=== PATIENT | male | born 1985 | race Caucasian/White ===

== ENCOUNTER 2016-06-11 10:53 | Emergency (ER) | payer BC, OTHER ==
[~2016-06-11] VITALS: Ht 180.3 cm; Wt 58.0 kg
[~2016-06-11 10:53] MED LIST: FEXO60TA PO; PERM5%T TOP; PERM5CRE TOP
[2016-06-11 10:58] VITALS: BP 118/79; PULSE 86; RESP 16; TEMP 98.8; O2SAT 100
[2016-06-11] MEDS ORDERED: ASPIRIN 81 MG CHEW TAB PO ONE (11:30)
[2016-06-11] MEDS ORDERED: SODIUM CHLORIDE 0.9% FLUSH 5 ML FLUSH IVF PRN (11:30)
[2016-06-11 11:31] VITALS: O2SAT 98
--- NOTE | 2016-06-11 11:42 | PD ---
HPI Chief Complaint: Musculoskeletal Complaint Time Seen by Provider: 11:39 Travel History International Travel<30 days: No Contact w/Intl Traveler<30days: No Traveled to known affect area: No History of Present Illness HPI 30-year-old male presents to the emergency room for evaluation of palpitations that have been ongoing for the past 5-7 days. Patient states palpitations have been getting progressively longer and occurring more often throughout the day. Patient does not associate the onset of symptoms with any activity. States it occurs randomly and lasts anywhere from one to 5 minutes. Reports that his chest feels "weird" during episodes but he denies chest pain, shortness breath, diaphoresis, nausea, vomiting, lightheadedness, and radiation of symptoms. Report increased caffeine intake recently. Denies cocaine or illicit drug use. Denies personal or family history of heart disease. PFSH Past Medical History Hx Anticoagulant Therapy: No Cancer: No Cardiovascular Problems: No Chemotherapy: No Cerebrovascular Accident: No Diabetes: No Diminished Hearing: No Headaches: No Medical other: Yes (ALLERGIES) Respiratory: No Immunizations Current: Yes Seizures: No Tetanus Vaccination: > 5 Years Influenza Vaccination: Yes Past Surgical History Surgical History: No Previous Surgery Hysterectomy: No Social History Alcohol Use: No Tobacco Use: No Substance Use: No (MARIJUANA) Allergies-Medications (Allergen,Severity, Reaction): Coded Allergies: Penicillin (Verified Allergy, Severe, HIVES, TROUBLE BREATHING, 06/11/16) Reported Meds & Prescriptions Reported Meds & Active Scripts Active No Active Prescriptions or Reported Medications Review of Systems Except as stated in HPI: all other systems reviewed are Neg Physical Exam Narrative GENERAL: Well-nourished, well-developed male in no acute distress. Afebrile. Ambulatory. SKIN: Warm and dry. HEAD: Normocephalic. EYES: No scleral icterus. No injection or drainage. NECK: Supple, trachea midline. No JVD or lymphadenopathy. CARDIOVASCULAR: Regular rate and rhythm without murmurs, gallops, or rubs. RESPIRATORY: Breath sounds equal bilaterally. No accessory muscle use. GASTROINTESTINAL: Abdomen soft, non-tender, nondistended. Data Data Last Documented VS Vital Signs Date Time Temp Pulse Resp B/P Pulse Ox O2 Delivery O2 Flow Rate FiO2 06/11/16 11:43 138/91 116/75 06/11/16 11:31 98 Room Air 06/11/16 10:58 98.8 86 16 Orders Electrocardiogram (06/11/16 11:28) Ckmb (Isoenzyme) Profile (06/11/16 11:28) Complete Blood Count With Diff (06/11/16 11:28) Comprehensive Metabolic Panel (06/11/16 11:28) Magnesium (Mg) (06/11/16 11:28) Troponin I (06/11/16 11:28) Chest, Single Ap (06/11/16 11:28) Ecg Monitoring (06/11/16 11:28) Bilateral Bp Monitoring (06/11/16 11:28) Iv Access Insert/Monitor (06/11/16 11:28) Oximetry (06/11/16 11:28) Oxygen Administration (06/11/16 11:28) Aspirin Chew (Aspirin Chew) (06/11/16 11:30) Sodium Chloride 0.9% Flush (Ns Flush) (06/11/16 11:30) Thyroid Stimulating Hormone (06/11/16 11:28) CKMB (06/11/16 11:40) CKMB% (06/11/16 11:40) Labs Laboratory Tests Test 06/11/16 11:40 White Blood Count 8.6 TH/MM3 Red Blood Count 4.18 MIL/MM3 Hemoglobin 12.9 GM/DL Hematocrit 38.8 % Mean Corpuscular Volume 92.9 FL Mean Corpuscular Hemoglobin 30.9 PG Mean Corpuscular Hemoglobin 33.3 % Concent Red Cell Distribution Width 11.9 % Platelet Count 261 TH/MM3 Mean Platelet Volume 7.4 FL Neutrophils (%) (Auto) 71.7 % Lymphocytes (%) (Auto) 20.3 % Monocytes (%) (Auto) 5.9 % Eosinophils (%) (Auto) 1.3 % Basophils (%) (Auto) 0.8 % Neutrophils # (Auto) 6.2 TH/MM3 Lymphocytes # (Auto) 1.7 TH/MM3 Monocytes # (Auto) 0.5 TH/MM3 Eosinophils # (Auto) 0.1 TH/MM3 Basophils # (Auto) 0.1 TH/MM3 CBC Comment DIFF FINAL Differential Comment Sodium Level 142 MEQ/L Potassium Level 4.2 MEQ/L Chloride Level 106 MEQ/L Carbon Dioxide Level 29.6 MEQ/L Anion Gap 6 MEQ/L Blood Urea Nitrogen 12 MG/DL Creatinine 0.94 MG/DL Estimat Glomerular Filtration 94 ML/MIN Rate Random Glucose 91 MG/DL Calcium Level 8.8 MG/DL Magnesium Level 2.4 MG/DL Total Bilirubin 0.4 MG/DL Aspartate Amino Transf 12 U/L (AST/SGOT) Alanine Aminotransferase 18 U/L (ALT/SGPT) Alkaline Phosphatase 73 U/L Total Creatine Kinase 139 U/L Creatine Kinase MB 2.3 NG/ML Troponin I LESS THAN 0.02 NG/ML Total Protein 6.7 GM/DL Albumin 3.8 GM/DL Thyroid Stimulating Hormone 1.030 uIU/ML 3rd Gen [facility] Medical Decision Making Medical Screen Exam Complete: Yes Emergency Medical Condition: Yes Medical Record Reviewed: Yes Differential Diagnosis Palpitations versus anxiety versus caffeine overdose versus illicit drug use Narrative Course 30-year-old male with a history of anxiety presents to the emergency room for evaluation of chest palpitations that have been ongoing for the past 5-7 days. Patient reports increased caffeine intake. Denies chest pain or associated cardiac symptoms. No cardiac history. Patient refused IV but allowed blood draw. He was placed on cardiac monitoring which showed occasional PVCs. EKG shows sinus rhythm with no ST changes, signed off by my attending physician. He is resting comfortably and in no distress. CBC, CMP, troponin, and TSH are within normal limits. Chest x-ray is negative. Palpitations could be due to increased caffeine intake or anxiety. He was told to follow up with a training and development assistant for outpatient Holter monitoring or return for worsening symptoms. He understands and agrees to this plan. I spoke to my attending physician, Dr. Gamble, who was made aware of patient's history, physical exam, and lab findings and agrees with this plan. Diagnosis Primary Impression: Heart palpitations Additional Impression: PVC (premature ventricular contraction) Referrals: [employer] Primary Care Physician Patient Instructions: General Instructions, Palpitations (ED), Premature Ventricular Contractions (ED) Additional Instructions: Rest and drink plenty of fluids. Follow-up with a training and development assistant for outpatient Holter monitor. Return to the emergency room for worsening symptoms. Scripts No Active Prescriptions or Reported Meds Disposition: 01 DISCHARGE HOME Condition: Stable Sofiya Nicolas Jun 11, 2016 11:42
[2016-06-11 11:43] VITALS: BP_SYST 116; BP_SYST 138; BP_DIAS 75; BP_DIAS 91
[2016-06-11 11:47] LABS: AUTOMATED NEUTROPHIL # 6.2 TH/MM3 (1.8-7.7); BASOPHIL # 0.1 TH/MM3 (0-0.2); BASOPHIL % 0.8 % (0.0-2.0); EOSINOPHIL # 0.1 TH/MM3 (0-0.4); EOSINOPHIL % 1.3 % (0.0-4.0); HEMATOCRIT 38.8 % (39.0-51.0); HEMO FLAGS DIFF FINAL; LYMPH % 20.3 % (9.0-44.0); LYMPHOCYTE # 1.7 TH/MM3 (1.0-4.8); MEAN CELL VOLUME 92.9 FL (80.0-100.0); MEAN CORPUSCULAR HEMOGLOBIN 30.9 PG (27.0-34.0); MEAN CORPUSCULAR HGB CONC 33.3 % (32.0-36.0); MONO % 5.9 % (0.0-8.0); NEUT % 71.7 % (16.0-70.0); PLATELET COUNT 261 TH/MM3 (150-450); RED BLOOD COUNT 4.18 MIL/MM3 (4.50-5.90); RED CELL DISTRIBUTION WIDTH 11.9 % (11.6-17.2); WHITE BLOOD COUNT 8.6 TH/MM3 (4.0-11.0)
[2016-06-11 11:56] LABS: CHLORIDE 106 MEQ/L (98-107); POTASSIUM 4.2 MEQ/L (3.5-5.1); SODIUM (NA) 142 MEQ/L (136-145)
[2016-06-11 12:00] LABS: ANION GAP 6 MEQ/L (5-15); BICARBONATE 29.6 MEQ/L (21.0-32.0); BLOOD UREA NITROGEN 12 MG/DL (7-18); MAGNESIUM 2.4 MG/DL (1.5-2.5)
[2016-06-11 12:03] LABS: ALT (GPT) 18 U/L (12-78); AST (GOT) 12 U/L (15-37)
[2016-06-11 12:04] LABS: GLOMERULAR FILTRATION RATE 94 ML/MIN (>89)
[2016-06-11 12:05] LABS: TOTAL BILIRUBIN ADULT 0.4 MG/DL (0.2-1.0)
[2016-06-11 12:06] LABS: ALKALINE PHOSPHATASE 73 U/L (45-117); CREATINE KINASE 139 U/L (39-308)
--- NOTE | 2016-06-11 12:10 | RADHPO ---
EXAM DATE/TIME: 06/11/2016 11:51 [facility] COMPARISON: No previous studies available for comparison. INDICATIONS : Chest pressure. MEDICAL HISTORY : None. SURGICAL HISTORY : None. ENCOUNTER: Initial ACUITY: 1 week PAIN SCORE: 06/15 LOCATION: Bilateral chest FINDINGS: A single view of the chest demonstrates the lungs to be symmetrically aerated without evidence of mas s, infiltrate or effusion. The cardiomediastinal contours are unremarkable. Osseous structures are intact. CONCLUSION: No acute disease. Ace Reynolds MD FACR on June 11, 2016 at 12:09 Board Certified Radiologist. This report was verified electronically.
[2016-06-11 12:19] LABS: CKMB 2.3 NG/ML (0.5-3.6)
--- NOTE | 2016-06-11 22:20 | EKG ---
Date Performed: 06/11/2016 Time Performed: 11:40:20 PTAGE: 30 years EKG: Sinus rhythm rSr'(V1) - probable normal variant Normal ECG PREVIOUS TRACING : 12/23/2014 13.24 Since previous tracing, no significant change noted DOCTOR: Cj Simmons Interpretating Date/Time 06/11/2016 22:20:13
== END 2016-06-11 12:49 | disposition home or self-care (01) ==
LOC: PHEFT 10:53
DX: R00.2 Palpitations (principal); I49.3 Ventricular premature depolarization
CPT/HCPCS: 71010; 80053; 82550; 82552; 83735; 84443; 84484; 85025; 93005